=== PATIENT | female | born 1975 | race Caucasian/White ===

== ENCOUNTER 2021-09-30 10:53 | Outpatient (CLI) | payer OTHER ==
[2021-09-30 11:40] LABS: Mean Corpuscular HGB CONC 34.3 g/dL (32.0-36.0); Mean Platelet Volume 8.9 fl (7.4-10.4); Platelet Count 280 10x3/uL (150-450); RBC Distribution Width 12.2 % (11.5-14.5); Red Blood Cell (RBC) Count 4.57 10x6/uL (3.90-5.03); White Blood Cell (WBC) Count 11.6 10x3/uL (3.5-10.5)
[2021-09-30 11:54] LABS: BHCG - Serum Negative (NEGATIVE); Pregs Control Background? CLEAR/WHITE (CLR/WHITE); Pregs Control Bar Appear? YES (CONTROL BAR)
== END 2021-09-30 10:54 | disposition home or self-care (01) ==
LOC: CSHLAB 10:53
PROVIDERS: ATTEND Student in an Organized Health Care Education/Training Program
DX: Z01.812 Encounter for preprocedural laboratory examination (principal); R10.2 Pelvic and perineal pain; Z20.822 Contact with and (suspected) exposure to COVID-19
CPT/HCPCS: 84703; 85027; 86850; 86900; 86901; 87811

== ENCOUNTER 2021-10-05 08:10 | Day surgery (SDC) | payer OTHER ==
[2021-09-30 11:40] LABS: Mean Corpuscular HGB CONC 34.3 g/dL (32.0-36.0); Mean Platelet Volume 8.9 fl (7.4-10.4); Platelet Count 280 10x3/uL (150-450); RBC Distribution Width 12.2 % (11.5-14.5); Red Blood Cell (RBC) Count 4.57 10x6/uL (3.90-5.03); White Blood Cell (WBC) Count 11.6 10x3/uL (3.5-10.5)
[2021-09-30 11:54] LABS: BHCG - Serum Negative (NEGATIVE); Pregs Control Background? CLEAR/WHITE (CLR/WHITE); Pregs Control Bar Appear? YES (CONTROL BAR)
[2021-10-04 09:54] VITALS: BMI 29.0
[2021-10-05] MEDS ORDERED: Famotidine/PF 20 mg/2ml Vial ONE (08:54)
[2021-10-05] MEDS ORDERED: Gabapentin 300 MG CAP ONE (08:54)
[2021-10-05] MEDS ORDERED: CeleCOXIB 100 MG CAP ONE (08:54)
[2021-10-05] MEDS ORDERED: Lidocaine 1% MPF 2 ML VIAL ONE (08:54)
[2021-10-05] MEDS ORDERED: EPINEPHrine 1 MG/ML AMP ONE (09:49)
[2021-10-05] MEDS ORDERED: Bupivacaine PF 0.5% 30 ML VIAL ONE (09:50)
[2021-10-05] MEDS ORDERED: PROPOFOL 20 ML ONE (09:51)
[2021-10-05] MEDS ORDERED: Fentanyl 100 MCG/2 ML VIAL ONE ×2 (09:51→10:45)
[2021-10-05] MEDS ORDERED: Rocuronium Bromide 10 MG/ML (10ML VIAL) ONE (09:52)
[2021-10-05] MEDS ORDERED: Dexamethasone 4 mg/ml Vial ONE (09:52)
[2021-10-05] MEDS ORDERED: Lidocaine 1% PF 5 ML VIAL ONE (09:52)
[2021-10-05] MEDS ORDERED: Ondansetron PF 4 MG/2 ML Vial ONE ×2 (09:52→14:00)
[2021-10-05] MEDS ORDERED: CEFAZOLIN 2 GM VIAL ONE (10:09)
[2021-10-05] MEDS ORDERED: Midazolam HCl 2 mg/2 ml Vial ONE (10:12)
[2021-10-05] MEDS ORDERED: Glycopyrrolate 0.2 MG/ML 5 ML SYRINGE ONE (11:25)
[2021-10-05] MEDS ORDERED: Meperidine HCl/PF 25 MG/ML VIAL ONE (12:22)
[2021-10-05] MEDS ORDERED: Estradiol 0.05mg/24 Hour Patch (Weekly) ONE (12:35)
[2021-10-05] MEDS ORDERED: Acetaminophen/Codeine 30-300mg Tablet ONE (14:00)
== END 2021-10-05 14:45 | disposition home or self-care (01) ==
LOC: CSHSDC 08:10
PROVIDERS: ATTEND Student in an Organized Health Care Education/Training Program
PROC: 0UT24ZZ Resection of Bilateral Ovaries, Percutaneous Endoscopic Approach (ICD-10-PCS; principal; 2021-10-05)
PROC: 0UT94ZZ Resection of Uterus, Percutaneous Endoscopic Approach (ICD-10-PCS; principal; 2021-10-05)
PROC: 0UT74ZZ Resection of Bilateral Fallopian Tubes, Percutaneous Endoscopic Approach (ICD-10-PCS; principal; 2021-10-05)
PROC: 8E0W4CZ Robotic Assisted Procedure of Trunk Region, Percutaneous Endoscopic Approach (ICD-10-PCS; principal; 2021-10-05)
DX: N85.8 Other specified noninflammatory disorders of uterus (principal); N83.01 Follicular cyst of right ovary; D25.2 Subserosal leiomyoma of uterus; R10.2 Pelvic and perineal pain; F17.200 Nicotine dependence, unspecified, uncomplicated; Z97.5 Presence of (intrauterine) contraceptive device; Z20.822 Contact with and (suspected) exposure to COVID-19
CPT/HCPCS: 84703; 85027; 86850; 86900; 86901; 87811; 88307; J0171; J0690; J1100; J2175; J2250; J2405; J2704; J3010; S0020; S0028